=== PATIENT | female | born 1970 | race African-American/Black ===

== ENCOUNTER 2017-06-14 09:50 | Emergency (ER) | payer MEDICAID | END 2017-06-14 11:00 | disposition home or self-care (01) | LOC: D.ER 09:50 | DX: M25.511 Pain in right shoulder (principal); E11.9 Type 2 diabetes mellitus without complications; F17.200 Nicotine dependence, unspecified, uncomplicated ==

== ENCOUNTER 2017-12-22 11:34 | Emergency (ER) | payer MEDICAID | END 2017-12-22 13:49 | disposition home or self-care (01) | LOC: D.ER 11:34 | DX: M25.511 Pain in right shoulder (principal); E11.9 Type 2 diabetes mellitus without complications ==

== ENCOUNTER 2018-01-02 23:42 | Emergency (ER) | payer MEDICAID ==
[2018-01-03 00:15] LABS: APPEARANCE CLEAR (CLEAR); BILIRUBIN NEGATIVE (NEGATIVE); COLOR STRAW (YELLOW); GLUCOSE NEGATIVE (NEGATIVE); KETONE NEGATIVE (NEGATIVE); NITRITE NEGATIVE (NEGATIVE); PROTEIN NEGATIVE (NEGATIVE); SPECIFIC GRAVITY 1.005 (1.005-1.020); UROBILINOGEN NORMAL (NORMAL)
[2018-01-03 00:17] LABS: EPITHELIAL CELLS 0-5 /hpf (0-5); RED CELLS - URINE 0-5 /hpf (0-5); WHITE CELLS - URINE 0-5 /hpf (0-5)
[2018-01-03 00:18] LABS: BACTERIA FEW /hpf (NONE SEEN)
[2018-01-03 01:30] LABS: BASOPHILS 0.4 % (0-2); EOSINOPHILS 1.3 % (0-7); HEMATOCRIT 37.3 % (36.0-48.0); HEMOGLOBIN 12.6 g/dL (12-16); LYMPHOCYTES 31.4 % (15-50); MCH 29.7 pg (26.0-34.0); MCHC 33.8 g/dL (31.0-37.0); MEAN PLATELET VOLUME 9.8 fL (7.4-10.4); MONOCYTES 7.5 % (2-11); NEUTROPHILS 59.4 % (40-80); PLATELET COUNT 228 10x3/uL (130-400); RBC 4.24 10x6/uL (4.00-5.40); RDW 14.2 % (11.5-14.5); WBC 7.4 10x3/uL (4.8-10.8)
[2018-01-03 01:40] LABS: ALBUMIN 3.6 g/dL (3.4-5.0); ANION GAP 11.3 mmol/L (8-16); BILIRUBIN - TOTAL 0.6 mg/dL (0.2-1.3); CALCIUM 9.6 mg/dL (8.5-10.1); CARBON DIOXIDE 26.6 mmol/L (21.0-32.0); CREATININE - SERUM 0.9 mg/dL (0.6-1.3); POTASSIUM - SERUM 3.9 mmol/L (3.5-5.1); PROTEIN - SERUM 7.4 g/dL (6.4-8.2)
== END 2018-01-03 01:31 | disposition home or self-care (01) ==
LOC: D.ER 23:42
PROVIDERS: Nurse Practitioner Family
DX: S00.03XA Contusion of scalp, initial encounter (principal); W07.XXXA Fall from chair, initial encounter; Y93.89 Activity, other specified; Y92.019 Unspecified place in single-family (private) house as the place of occurrence of the external cause; S16.1XXA Strain of muscle, fascia and tendon at neck level, initial encounter; A59.9 Trichomoniasis, unspecified; E11.9 Type 2 diabetes mellitus without complications; Z87.820 Personal history of traumatic brain injury

== ENCOUNTER → 2018-11-10 08:00 | Outpatient (CLI) | payer MEDICAID | END | disposition home or self-care (01) | LOC: D.MAMMO 08:00 | DX: Z12.31 Encounter for screening mammogram for malignant neoplasm of breast (principal) ==

== ENCOUNTER 2018-12-14 08:20 | Day surgery (SDC) | payer MEDICAID ==
[2018-12-13 14:45] LABS: HEMATOCRIT 37.8 % (36.0-48.0); HEMOGLOBIN 12.7 g/dL (12-16); MCH 29.2 pg (26.0-34.0); MCHC 33.6 g/dL (31.0-37.0); MCV 86.9 fL (80.0-100.0); MEAN PLATELET VOLUME 9.5 fL (7.4-10.4); RBC 4.35 10x6/uL (4.00-5.40); RDW 13.7 % (11.5-14.5); WBC 6.1 10x3/uL (4.8-10.8)
[2018-12-13 15:00] LABS: ANION GAP 13.1 mmol/L (8-16); CALCIUM 9.3 mg/dL (8.5-10.1); CARBON DIOXIDE 27.3 mmol/L (21.0-32.0); POTASSIUM - SERUM 3.4 mmol/L (3.5-5.1)
[~2018-12-14] VITALS: Ht 160 cm; Wt 107.0 kg
--- NOTE | ~2018-12-14 | OP ---
PATIENT NAME: JULIET AMOS MEDICAL RECORD: [id number] :66 LOCATION:[facility] ADMISSION DATE: SURGEON: JENISE AMBROSE MD DATE OF OPERATION: 12/14/2018 PREOPERATIVE DIAGNOSES: Rotator cuff tear of the right shoulder with impingement syndrome and biceps tendinitis. POSTOPERATIVE DIAGNOSES: Rotator cuff tear of the right shoulder with impingement syndrome and biceps tendinitis. PROCEDURES: 1. Arthroscopic rotator cuff repair of the right shoulder. 2. Arthroscopic biceps tenotomy of the right shoulder. 3. Arthroscopic distal clavicle excision done through separate incision -- 1 cm. 5. Arthroscopic subacromial decompression with acromioplasty and bursectomy. SURGEON: Jenise Ambrose MD ANESTHESIA: General. INTRAOPERATIVE COMPLICATIONS: None. SUMMARY OF PATHOLOGIC FINDINGS: The patient has severe biceps tendinitis, full thickness rotator cuff tearing, downward sloping acromion, acromioclavicular arthropathy consistent with the preoperative diagnosis. OPERATIVE SUMMARY IN DETAIL: After obtaining the appropriate preoperative orthopedic surgery consent as well as anesthetic consultation, evaluation and clearance, the patient was brought to the operating room and placed on the operating table in supine position. After adequate general laryngeal mask airway was administered, the patient was placed in a left lateral decubitus position. All pressure points were well padded to include down leg peroneal pad as well as axillary roll. The patient was held firmly to the operating table using the vacuum pack suction system. Right upper extremity and shoulder were then prepped and draped in routine sterile fashion. Arm was held in the Ar[employer] traction boom in 30 degrees of forward flexion, 30 degrees of abduction with 10 pounds of traction laterally. Arthroscopy was established in the glenohumeral joint from posterior portal. Anterior portal was established in the anterior safe interval. Diagnostic arthroscopy showed the patient to have the above findings. A transrotator cuff portal was created through which a debridement of the articular aspect of the supraspinatus tendinous footprint was taken back to cortical bone. The biceps tendon having been evaluated was tenotomized. Attention was then turned to the subacromial space. While in the subacromial space, [place] tissue ablation system was utilized to denude the undersurface of the acromion of all soft tissue elements and release the coracoacromial ligament. A 5-0 barrel bur was then used to perform acromioplasty at the level of acromioclavicular joint. Having completed this, attention was turned to the distal clavicle. Under direct arthroscopic visualization, distal clavicle was excised for 1 cm. Next, attention was turned to the rotator cuff tear itself. After all the subacromial bursa was taken down, further decortication was carried out on the lateral aspect of the greater tuberosity. A single inverted #2 FiberTape was then placed and anchored laterally with a single 5.5 SwiveLock from [employer]. Having completed this, arthroscopy portals were closed in routine OPERATIVE REPORT [id number] JULIET AMOS interrupted fashion using 4-0 Prolene. Sterile dressings were applied. The patient was awakened, taken to recovery room in stable condition. All final needle and sponge counts were correct. TRANSINT:[id number] Voice Confirmation ID: [id number] DOCUMENT ID: [id number] HALIE ORDONEZ, JENISE GRACIA CC: [id number] DICTATION DATE: 12/15/18 1141 [employer] IRON DIPPER: 12/15/18 1239 [facility] 12/14/[id number] [place] [address]
[~2018-12-14 08:20] MED LIST: CYCLOBENZAPRINE10 MG PO; LISINOPRIL-HCT1 EAC4 PO; TRAVATAN Z2.5 ML EACH EYE; TRAZODONE HCL150 MG PO; ZOLOFT50 MG PO
[2018-12-14 08:55] VITALS: BP 106/47; Ht 160 cm; Wt 107.0 kg
[2018-12-14] MEDS ORDERED: HYDROCODON-ACE1 EA10 PO (11:08)
== END 2018-12-14 12:55 | disposition home or self-care (01) ==
LOC: D.OPS 08:20
PROVIDERS: Anesthesiology; ATTEND Orthopaedic Surgery
DX: M75.121 Complete rotator cuff tear or rupture of right shoulder, not specified as traumatic (principal); M75.41 Impingement syndrome of right shoulder; M75.21 Bicipital tendinitis, right shoulder; Z01.812 Encounter for preprocedural laboratory examination

== ENCOUNTER 2019-01-08 20:27 | Emergency (ER) | payer MEDICAID ==
[~2019-01-08] VITALS: Ht 160 cm; Wt 107.3 kg
[~2019-01-08 20:27] MED LIST changes: +HYDROCODON-ACE1 EA10 PO
[2019-01-08 20:34] VITALS: Ht 160 cm; Wt 107.3 kg
[2019-01-08] MEDS ORDERED: IBUPROFEN800 MG PO (22:12)
[2019-01-08] MEDS ORDERED: ACETAMINOPHEN500 M1 PO (22:12)
[2019-01-08] MEDS ORDERED: CYCLOBENZAPRINE10 MG PO (22:12)
[2019-01-08 22:54] VITALS: BP 102/72
== END 2019-01-08 22:56 | disposition home or self-care (01) ==
LOC: D.ER 20:27
DX: M25.511 Pain in right shoulder (principal); R07.9 Chest pain, unspecified; S40.011A Contusion of right shoulder, initial encounter; W19.XXXA Unspecified fall, initial encounter; F17.200 Nicotine dependence, unspecified, uncomplicated; I10 Essential (primary) hypertension

== ENCOUNTER → 2019-01-23 08:05 | Outpatient (CLI) | payer MEDICAID ==
[2019-01-08 20:34] VITALS: BMI 41.9
[~2019-01-23 08:05] MED LIST changes: +ACETAMINOPHEN500 M1 PO; +IBUPROFEN800 MG PO
== END | disposition home or self-care (01) ==
LOC: D.MRI 01-22 11:00
PROVIDERS: ATTEND Clinical Nurse Specialist Family Health
DX: M25.511 Pain in right shoulder (principal)

== ENCOUNTER → 2019-04-27 10:02 | Outpatient (CLI) | payer MEDICAID ==
[2019-01-08 20:34] VITALS: BMI 41.9
== END | disposition home or self-care (01) ==
LOC: D.MRI 10:02
PROVIDERS: ATTEND Orthopaedic Surgery
DX: S83.232A Complex tear of medial meniscus, current injury, left knee, initial encounter (principal)

== ENCOUNTER → 2019-05-14 08:48 | Outpatient (CLI) | payer MEDICAID ==
[2019-01-08 20:34] VITALS: BMI 41.9
== END | disposition home or self-care (01) ==
LOC: D.US 08:48
PROVIDERS: ATTEND Orthopaedic Surgery
DX: M79.605 Pain in left leg (principal)

== ENCOUNTER → 2019-07-16 07:08 | Outpatient (CLI) | payer MEDICAID ==
[2019-01-08 20:34] VITALS: BMI 41.9
== END | disposition home or self-care (01) ==
LOC: D.US 07:08
PROVIDERS: ATTEND Family Medicine
DX: M79.604 Pain in right leg (principal)

== ENCOUNTER 2021-02-10 20:56 | Inpatient (IN) | payer MEDICAID ==
[~2021-02-10] VITALS: Ht 160 cm; Wt 101.5 kg
--- NOTE | 2021-02-10 21:15 | NUR ---
PT AMBULATED TO RESTROOM AT THIS TIME WITH STEADY GAIT, URINE SAMPLE OBTAINED. PT BACK ON STRATEGIC MARKETING MANAGER. CALL LIGHT WITHIN REACH, INSTRUCTED PT ON USE.
[2021-02-10 21:30] VITALS: BP 131/90
[2021-02-10 21:37] LABS: BASOPHILS 0.9 % (0-2); EOSINOPHILS 0.6 % (0-7); HEMATOCRIT 37.3 % (36.0-48.0); HEMOGLOBIN 12.1 g/dL (12-16); MCHC 32.4 g/dL (31.0-37.0); MCV 86.4 fL (80.0-100.0); MEAN PLATELET VOLUME 7.6 fL (7.4-10.4); MONOCYTES 9.7 % (2-11); NEUTROPHILS 71.8 % (40-80); RBC 4.32 10x6/uL (4.00-5.40); RDW 14.4 % (11.5-14.5); WBC 11.8 10x3/uL (4.8-10.8)
[2021-02-10 21:47] LABS: BILIRUBIN NEGATIVE (NEGATIVE); KETONE NEGATIVE (NEGATIVE); NITRITE NEGATIVE (NEGATIVE); UROBILINOGEN NORMAL mg/dL (< 2); WHITE CELLS - URINE OCC HPF (0-4)
[2021-02-10 21:48] LABS: CALC OSMOLALITY 276 mosm/kg (275-300); CALCIUM 9.8 mg/dL (8.5-10.1); CARBON DIOXIDE 27.1 mmol/L (21.0-32.0); CHLORIDE - SERUM 101 mmol/L (98-107); CREATININE - SERUM 0.8 mg/dL (0.6-1.3); GLUCOSE 104 mg/dL (74-106); PLATELET COUNT 414 10x3/uL (130-400); POTASSIUM - SERUM 3.7 mmol/L (3.5-5.1); SODIUM 139 mmol/L (136-145); UREA NITROGEN 10 mg/dL (7-18); eGFR NON AFRICAN AMERICAN 80 mL/min (90-120)
[2021-02-10 22:01] LABS: ALKALINE PHOSPHATASE 100 U/L (30-120); ALT (SGPT) 31 U/L (10-68); BILIRUBIN - TOTAL 0.44 mg/dL (0.2-1.3); C-REACTIVE PROTEIN 10.3 mg/dL (0.0-0.9); LIPASE 103 U/L (73-393); MAGNESIUM - SERUM 2.1 mg/dL (1.8-2.4); PRO BNP 57 pg/mL (0-125); PROTEIN - SERUM 7.8 g/dL (6.4-8.2); THYROID STIMULATING HORMONE 3.81 uIU/mL (0.36-3.74); TROPONIN-I < 0.017 ng/mL (0.000-0.060)
[2021-02-10 22:30] VITALS: BP 129/85
[2021-02-10 23:30] VITALS: BP 127/78
[2021-02-11] VITALS (8 sets, daily range): BP systolic 88–134; BP diastolic 61–99; Ht 160 cm; Wt 101.5 kg
--- NOTE | 2021-02-11 00:03 | NUR ---
PT TO ORDERED CTA AT THIS TIME.
--- NOTE | 2021-02-11 01:20 | NUR ---
AROUSES TO VERBAL AND TACTILE STIMULI, PT EDUCATED ON MEDICATION LOVENOX FOR POSSIBLE P.E. FAMILY AT BEDSIDE AND PT VERBALIZE UNDERSTANDING, PT RESPIRATIONS EVEN AND NON LABORED, REMAINS ON ROOM AIR WITH SPO2 OF 96-98% CALL LIGHT WITHIN REACH, BED LOW AND SIDERAILS UP X2.
--- NOTE | 2021-02-11 03:14 | NUR ---
AMBULATED TO AND FROM RESTROOM WITH STEADY GAIT, BACK ON ASSISTANT COUNSEL. CALL LIGHT WITHIN REACH. PT DENIES CURRENT NEEDS.
--- NOTE | 2021-02-11 04:00 | NUR ---
PT RECEIVED TO ROOM 2133 VIA WC ACCOMPANIED BY ED NURSE. PT WITH NO DISTRESS NOTED. SELF TRANSFERRED TO ROOM BED. PIV TO LAC NOTED. PT WITH MILD MENTAL HANDICAPPED/DELAY NOTED BUT CAN ANSWER MOST QUESTIONS. SHE IS UNSURE OF ALL MEDS AND THINKS IT HAS BEEN A COUPLE OF MONTHS SINCE SHE HAD THEM. SHE REPORTS SHE LIVES WITH HER SISTER. VSS. PT DENIES ANY CP OR SOB AT THIS TIME WILL CONTINUE TO MONITOR
[2021-02-11 07:19] LABS: MEAN PLATELET VOLUME 8.3 fL (7.4-10.4)
[2021-02-11 07:59] LABS: ALBUMIN 2.8 g/dL (3.4-5.0); ALKALINE PHOSPHATASE 97 U/L (30-120); ALT (SGPT) 26 U/L (10-68); BILIRUBIN - TOTAL 0.57 mg/dL (0.2-1.3); CALC OSMOLALITY 274 mosm/kg (275-300); CALCIUM 9.5 mg/dL (8.5-10.1); CARBON DIOXIDE 26.3 mmol/L (21.0-32.0); CHLORIDE - SERUM 103 mmol/L (98-107); CHOLESTEROL, TOTAL 191 mg/dL (0-200); CREATINE KINASE 40 UL (21-215); CREATININE - SERUM 0.9 mg/dL (0.6-1.3); GLUCOSE 95 mg/dL (74-106); HDL CHOLESTEROL 48 mg/dL (32-96); LDL CHOLESTEROL 125 mg/dL (0-100); LDL-HDL RATIO 2.6 ratio (1.5-3.5); MAGNESIUM - SERUM 2.3 mg/dL (1.8-2.4); PHOSPHOROUS 4.2 mg/dL (2.5-4.9); POTASSIUM - SERUM 3.9 mmol/L (3.5-5.1); PROTEIN - SERUM 6.7 g/dL (6.4-8.2); SODIUM 138 mmol/L (136-145); TRIGLYCERIDE 90 mg/dL (30-200); TROPONIN-I < 0.017 ng/mL (0.000-0.060); UREA NITROGEN 10 mg/dL (7-18); eGFR NON AFRICAN AMERICAN 70 mL/min (90-120)
[2021-02-11 08:10] LABS: BASOPHILS 0.8 % (0-2); EOSINOPHILS 0.9 % (0-7); HEMATOCRIT 34.9 % (36.0-48.0); HEMOGLOBIN 11.6 g/dL (12-16); LYMPHOCYTES 19.2 % (15-50); MCH 28.5 pg (26.0-34.0); MCHC 33.1 g/dL (31.0-37.0); MCV 86.2 fL (80.0-100.0); MONOCYTES 11.3 % (2-11); NEUTROPHILS 67.8 % (40-80); PLATELET COUNT 373 10x3/uL (130-400); RBC 4.06 10x6/uL (4.00-5.40); RDW 14.3 % (11.5-14.5); WBC 9.7 10x3/uL (4.8-10.8)
--- NOTE | 2021-02-11 12:07 | NUR ---
I have reviewed this patient and I concur with the Shift Assessment completed by the Licensed Practical Nurse today this shift.
[2021-02-12 04:17] VITALS: BP 88/45
[2021-02-12 05:32] LABS: BASOPHILS 0.6 % (0-2); EOSINOPHILS 0.8 % (0-7); HEMOGLOBIN 11.4 g/dL (12-16); LYMPHOCYTES 16.4 % (15-50); MCH 28.8 pg (26.0-34.0); MCHC 33.4 g/dL (31.0-37.0); MCV 86.3 fL (80.0-100.0); MEAN PLATELET VOLUME 7.8 fL (7.4-10.4); NEUTROPHILS 70.2 % (40-80); PLATELET COUNT 382 10x3/uL (130-400); RBC 3.94 10x6/uL (4.00-5.40); RDW 14.2 % (11.5-14.5); WBC 9.1 10x3/uL (4.8-10.8)
[2021-02-12 05:55] LABS: % SATURATION 9 % (15-55); IRON 19 ug/dl (35-150); TOTAL IRON BIND CAPACITY 210 ug/dl (260-445); UNSAT IRON BIND CAPACITY 191 ug/dl (150-375)
[2021-02-12 06:08] LABS: ALBUMIN 2.7 g/dL (3.4-5.0); ALKALINE PHOSPHATASE 89 U/L (30-120); ALT (SGPT) 23 U/L (10-68); AMYLASE - SERUM 54 U/L (25-115); BILIRUBIN - TOTAL 0.35 mg/dL (0.2-1.3); CALC OSMOLALITY 277 mosm/kg (275-300); CALCIUM 9.6 mg/dL (8.5-10.1); CARBON DIOXIDE 25.1 mmol/L (21.0-32.0); CHLORIDE - SERUM 103 mmol/L (98-107); CREATININE - SERUM 0.8 mg/dL (0.6-1.3); FERRITIN 194 ng/mL (3-244); GLUCOSE 109 mg/dL (74-106); LIPASE 86 U/L (73-393); MAGNESIUM - SERUM 2.1 mg/dL (1.8-2.4); PHOSPHOROUS 3.7 mg/dL (2.5-4.9); POTASSIUM - SERUM 3.8 mmol/L (3.5-5.1); PRO BNP 34 pg/mL (0-125); PROTEIN - SERUM 7.1 g/dL (6.4-8.2); SODIUM 139 mmol/L (136-145); UREA NITROGEN 9 mg/dL (7-18); eGFR NON AFRICAN AMERICAN 80 mL/min (90-120)
[2021-02-12 06:24] LABS: HELICOBACTER PYLORI IGG NEGATIVE (NEGATIVE)
--- NOTE | 2021-02-12 08:19 | EC ---
PATIENT:JULIET AMOS DATE OF SERVICE: 02/11/21 SEX: F MEDICAL RECORD: [id number] DATE OF : 66 LOCATION:D.M2 D.213 AGE OF PATIENT: 50 ADMISSION DATE: 02/11/21 REFERRING PHYSICIAN: INTERPRETING PHYSICIAN: KATY CURRY MD ECHOCARDIOGRAM REPORT ECHO CHARGES 4 ECHO COMPLETE Date: 02/11/21 CLINICAL DIAGNOSIS: CP, ELEVATED D-DIMER, HX:EDEMA, HTN ECHOCARDIOGRAPHIC MEASUREMENTS (adult normal given) AC root (d.<3.7cm) 2.7 cm LV Septum d (<1.2 cm> 0.7 cm Valve Excursion 1.3 cm LV Septum (systole) 1.1 cm Left Atria (s.<4.0cm> 3.4 cm LVPW d(<1.2cm) 0.9 cm RV (d.<2.3cm) 2.9 cm LVPW (sytole) 1.3 cm LV diastole(<5.6CM) 5.0 cm MV E-F(>70mm/sec) cm LV systole 2.9 cm LVOT Diameter 1.8 cm MV exc.(>10mm) 1.4 cm Est.ejection fraction (50-75%) % DOPPLER: LVIT cm/sec A 85 cm/sec E 71 cm/sec LA cm/sec RVSP 17 mmHg LVOT 114 cm/sec AOP1/2T m/s Asc. Ao 146 cm/sec RVOT 69 cm/sec RA cm/sec PA 94 cm/sec AV Gradient Peak 8.5 mmHg AV Mean 4.0 mmHg AV Area 2.3 cm MV Gradient Peak 3.2 mmHg MV Mean 1.6 mmHg MV Area cm COMMENTS: Plastic Cnc Machine Operator: Samuel GONZALEZ Opening Machine Cleaner: 3 Dr. Mae TAPE# Pericardial Effusion N DATE OF SERVICE: Adequate 2D, color flow imaging, spectral Doppler, and M-Mode. No LVH. LV internal dimensions are normal. Wall motion normal. EF greater than or equal to 55%. Aortic valve is tricuspid. No evidence of stenosis by Doppler interrogation. Left atrium is normal. Mitral valve appears normal. Trace MR. Right-sided chambers are grossly normal. Trivial TR. RV systolic pressures are normal at 17 mmHg via the continuity equation. ECHOCARDIOGRAM REPORT [id number] JULIET AMOS TRANSINT:[id number] Voice Confirmation ID: [id number] DOCUMENT ID: [id number] KATY CURRY MD at 0819 CC: [id number] DICTATION DATE: 02/11/21 164 [employer]ER C[employer] GRAIN: 02/12/21 0011 ADM IN [facility] [address] [id number]
[2021-02-12 08:21] VITALS: BP 105/64
[2021-02-12 12:18] VITALS: BP 162/103
[2021-02-12 16:47] VITALS: BP 127/60
[2021-02-12 19:16] VITALS: BP 120/64
[2021-02-13 00:54] VITALS: BP 107/61
[2021-02-13 06:15] LABS: BASOPHILS 0.8 % (0-2); EOSINOPHILS 0.7 % (0-7); HEMATOCRIT 33.7 % (36.0-48.0); HEMOGLOBIN 11.2 g/dL (12-16); LYMPHOCYTES 16.1 % (15-50); MCH 28.7 pg (26.0-34.0); MCHC 33.3 g/dL (31.0-37.0); MCV 86.3 fL (80.0-100.0); MEAN PLATELET VOLUME 7.7 fL (7.4-10.4); MONOCYTES 11.8 % (2-11); NEUTROPHILS 70.6 % (40-80); PLATELET COUNT 387 10x3/uL (130-400); RDW 13.7 % (11.5-14.5); WBC 9.4 10x3/uL (4.8-10.8)
[2021-02-13 06:32] LABS: ALBUMIN 2.7 g/dL (3.4-5.0); ALKALINE PHOSPHATASE 84 U/L (30-120); ALT (SGPT) 23 U/L (10-68); BILIRUBIN - TOTAL 0.37 mg/dL (0.2-1.3); CALC OSMOLALITY 276 mosm/kg (275-300); CALCIUM 9.5 mg/dL (8.5-10.1); CARBON DIOXIDE 24.7 mmol/L (21.0-32.0); CHLORIDE - SERUM 103 mmol/L (98-107); CREATININE - SERUM 0.8 mg/dL (0.6-1.3); GLUCOSE 116 mg/dL (74-106); MAGNESIUM - SERUM 2.1 mg/dL (1.8-2.4); POTASSIUM - SERUM 4.1 mmol/L (3.5-5.1); PROTEIN - SERUM 7.1 g/dL (6.4-8.2); SODIUM 139 mmol/L (136-145); UREA NITROGEN 8 mg/dL (7-18); eGFR NON AFRICAN AMERICAN 80 mL/min (90-120)
--- NOTE | 2021-02-13 07:15 | NUR ---
RECEIVE SHIFT REPORT. PATIENT DRESSED AND STATES SHE IS GOING HOME TODAY. PATIENT STATES SHE HAS TO ATTEND A TODAY AND NEEDS TO LEAVE. NO DISCHARGE ORDER IN AT THIS TIME. WILL CALL [facility].
[2021-02-13 08:13] LABS: HAPTOGLOBIN 502 mg/dL (33-346)
[2021-02-13 08:55] VITALS: BP 122/58
[2021-02-13] MEDS ORDERED: ELIQUIS5 MG PO (09:56)
[2021-02-13] MEDS ORDERED: CARAFATE1 G PO (09:57)
[2021-02-13] MEDS ORDERED: MUCINEX DM ER1 EAC1 PO (09:57)
[2021-02-13] MEDS ORDERED: PROTONIX40 MG PO (09:57)
--- NOTE | 2021-02-13 11:00 | NUR ---
D/C LEFT AC IV, TIP INTACT. DISCHARGE INSTRUCTIONS GIVEN TO DAUGHTER AND PATIENT. TAKEN DOWN TO ED ENTRANCE VIA WHEELCHAIR. REMAINS FREE FROM INJURY.
[2021-02-13 12:11] LABS: ACLA - IGG AB <9 GPL U/mL (0-14); ACLA - IGM AB <9 MPL U/mL (0-12)
[2021-02-15 10:08] LABS: LUPUS - INTERPRETATION Comment: (()); LUPUS - THROMBIN TIME 15.2 sec (0.0-23.0); LUPUS - dRVVT 42.9 sec (0.0-47.0); PTT-LA 41.1 sec (0.0-51.9)
[2021-02-16 09:08] LABS: PROTEIN S - FREE 113 % (57-157); PROTEIN S - TOTAL 144 % (60-150)
[2021-02-16 13:08] LABS: PROTEIN S - FREE 110 % (57-157); PROTEIN S - FUNCTIONAL 96 % (63-140); PROTEIN S - TOTAL 149 % (60-150)
== END 2021-02-13 11:00 | disposition home or self-care (01) | DRG 176 ==
LOC: D.ER 20:56 → D.M2 02-11 03:43
PROVIDERS: Family Medicine; Internal Medicine Pulmonary Disease; ADMIT Family Medicine; ATTEND Family Medicine
DX: I26.99 Other pulmonary embolism without acute cor pulmonale (principal); J98.11 Atelectasis; I10 Essential (primary) hypertension; M19.90 Unspecified osteoarthritis, unspecified site; F32.9 Major depressive disorder, single episode, unspecified; D64.9 Anemia, unspecified; E66.01 Morbid (severe) obesity due to excess calories; Z68.39 Body mass index [BMI] 39.0-39.9, adult; J44.9 Chronic obstructive pulmonary disease, unspecified; F17.200 Nicotine dependence, unspecified, uncomplicated; K59.00 Constipation, unspecified